=== PATIENT | female | born 1980 ===

== ENCOUNTER 2017-01-06 15:21 | Outpatient (CLI) | payer MEDICAID ==
--- NOTE | 2017-01-07 10:54 | Ultrasound Report ---
TRANSABDOMINAL AND TRANSVAGINAL PELVIC ULTRASOUND: 01/06/17 15:21:00 CLINICAL: Abnormal vaginal bleeding. FINDINGS: Transabdominal and transvaginal pelvic ultrasound demonstrated a minimally enlarged fibroid uterus measuring 7.0 x 4.7 x 7.5 cm. A posterior fundal subserosal fibroid is the only measurable fibroid. It measures 3.3 x 2.9 x 2.9 cm.The endometrium is normal and measures 5.0 mm AP thickness. Normal right ovary. The right ovary measures 1.8 x 1.7 x 2.1cm. Normal left ovary with a dominant 1.7 cm follicle. The left ovary measures 3.4 x 1.9 x 2.7cm. No adnexal mass. No free fluid. Normal urinary bladder. IMPRESSION: 1. A fibroid uterus with a 3.3 cm dominant fibroid. 2. Normal endometrium. 3. Normal ovaries.
== END 2017-01-06 15:22 | disposition home or self-care (01) ==
LOC: SPVWC 15:21
PROVIDERS: ATTEND Nurse Practitioner
DX: D25.9 Leiomyoma of uterus, unspecified (principal); N93.9 Abnormal uterine and vaginal bleeding, unspecified
CPT/HCPCS: 76830; 76856